=== PATIENT | female | born 1940 | race Caucasian/White ===

== ENCOUNTER 2020-11-24 20:50 | Inpatient (IN) ==
[2020-11-24 21:55] LABS: Basophils # 0.1 K/mcL (0.0-0.2); Basophils % 0.8 %; Eosinophils # 0.1 K/mcL (0.0-0.6); Eosinophils % 2.3 %; Hematocrit 34.8 % (35.3-44.9); Hemoglobin 10.9 g/dL (11.5-15.4); Immature Granulocytes % 0.3 % (0-4); Lymphocytes # 1.5 K/mcL (0.6-4.6); Lymphocytes % 23.6 %; Mean Corpuscular HGB Conc 31.3 g/dL (31.6-35.5); Mean Corpuscular Hemoglobin 29.7 pg (28.0-33.3); Mean Corpuscular Volume 94.8 fL (83.0-100.0); Mean Platelet Volume 8.8 fL (9.4-12.4); Monocytes # 0.5 K/mcL (0.0-1.3); Monocytes % 8.3 %; Platelet Count 241 K/mcL (140-400); Red Blood Count 3.67 M/mcL (3.82-4.97); Red Cell Distribution Width 12.9 % (11.5-14.5); Segmented Neutrophils % 64.7 %; White Blood Count 6.2 K/mcL (4.3-11.1)
[2020-11-24 22:18] LABS: Alanine Aminotransferase 19 Units/L (7-52); Albumin 3.5 g/dL (3.5-5.7); Albumin/Globulin Ratio 1.2 (1.1-2.2); Alkaline Phosphatase 73 Units/L (34-104); Aspartate Amino Transferase 32 Units/L (13-39); BUN/Creatinine Ratio 13 (6-26); Bilirubin,Direct 0.1 mg/dL (0.0-0.2); Bilirubin,Indirect 0.2 mg/dL (0.0-1.0); Bilirubin,Total 0.3 mg/dL (0.3-1.0); Blood Urea Nitrogen 17 mg/dL (8-23); Carbon Dioxide 30 mEq/L (23-29); Chloride 98 mEq/L (98-107); Glucose 109 mg/dL (70-105); Magnesium 1.8 mg/dL (1.6-2.6); Osmolality,Calculated 286 (280-300); Sodium 137 mEq/L (136-145); Total Protein 6.5 g/dL (6.4-8.9); eGFR For African Americans 48 (> 60); eGFR For Non-African Americans 40 (> 60)
[2020-11-24 22:19] LABS: Troponin I < 0.03 ng/mL (< 0.04)
[2020-11-24] MEDS ORDERED: Ketorolac 15 MG/ML VIAL IVP ONE (22:48)
[2020-11-24 23:49] LABS: Bilirubin,Urine Negative (Negative); Blood,Urine Negative (Negative); Clarity,Urine Clear (Clear); Color,Urine Yellow (Yellow); Glucose,Urine (UA) Normal (Normal); Hyaline Casts,Urine Few per lpf (None Seen); Ketones,Urine Negative (Negative); Leukocyte Esterase,Urine Moderate (Negative); Mucus,Urine Few per lpf (None-Few); Nitrite,Urine Negative (Negative); PH,Urine 6.5 pH Units (5.0-8.0); Protein,Urine Trace mg/dL (Neg-Trace); RBC,Urine 0-3 per hpf (0-3); Specific Gravity,Urine 1.021 (1.010-1.025); Squamous Epithelial Cell,Urine Few per hpf (None-Few); Transitional Epi Cells,Urine Few per hpf (None-Few); Urobilinogen,Urine Normal (Normal)
[2020-11-24] MEDS ORDERED: cefTRIAXone 1,000 MG in Water for inj. (sterile) 10 ML IVP ONE (23:55)
[2020-11-25] MEDS ORDERED: Melatonin 3 MG TABLET PO PRN (01:53)
[2020-11-25] MEDS ORDERED: Naloxone 0.4 MG/ML INJ IVP PRN (01:53)
[2020-11-25] MEDS ORDERED: 0.9 % Sodium Chloride 1,000 ML IVC ONE (05:04)
[2020-11-25 06:11] LABS: Basophils % 0.6 %; Eosinophils # 0.3 K/mcL (0.0-0.6); Eosinophils % 4.3 %; Hematocrit 32.7 % (35.3-44.9); Hemoglobin 10.9 g/dL (11.5-15.4); Immature Granulocytes % 0.3 % (0-4); Lymphocytes # 2.4 K/mcL (0.6-4.6); Lymphocytes % 35.7 %; Mean Corpuscular HGB Conc 33.3 g/dL (31.6-35.5); Mean Corpuscular Volume 92.9 fL (83.0-100.0); Mean Platelet Volume 9.2 fL (9.4-12.4); Monocytes # 0.6 K/mcL (0.0-1.3); Neutrophils # 3.4 K/mcL (1.6-8.9); Platelet Count 230 K/mcL (140-400); Red Blood Count 3.52 M/mcL (3.82-4.97); Segmented Neutrophils % 50.1 %; White Blood Count 6.7 K/mcL (4.3-11.1)
[2020-11-25] MEDS: *HR* Heparin 5,000 UNIT/ML VIAL SQ SCH ×2 (06:24→16:49)
[2020-11-25 06:40] LABS: Alanine Aminotransferase 16 Units/L (7-52); Albumin 3.4 g/dL (3.5-5.7); Albumin/Globulin Ratio 1.3 (1.1-2.2); Alkaline Phosphatase 70 Units/L (34-104); Aspartate Amino Transferase 30 Units/L (13-39); BUN/Creatinine Ratio 16 (6-26); Bilirubin,Total 0.2 mg/dL (0.3-1.0); Blood Urea Nitrogen 22 mg/dL (8-23); Calcium 8.8 mg/dL (8.6-10.3); Carbon Dioxide 28 mEq/L (23-29); Chloride 99 mEq/L (98-107); Globulin 2.6 g/dL (2.4-3.5); Glucose 96 mg/dL (70-105); Magnesium 1.8 mg/dL (1.6-2.6); Osmolality,Calculated 285 (280-300); Phosphorous 3.4 mg/dL (2.7-4.5); Sodium 136 mEq/L (136-145); Troponin I < 0.03 ng/mL (< 0.04); eGFR For African Americans 44 (> 60); eGFR For Non-African Americans 36 (> 60)
[2020-11-25] MEDS ORDERED: Perflutren Lipid Microsphere 1.3 ML in 0.9 % Sodium Chloride 8.7 ML IVP PRN (10:02)
[2020-11-25 10:35] LABS: Thyroid Stimulating Hormone 6.341 mcIU/mL (0.340-5.600)
[2020-11-25] MEDS: Acetaminophen 325 MG TABLET PO PRN (12:55)
[2020-11-25] MEDS ORDERED: atenoloL 50 MG TABLET PO SCH (13:30)
[2020-11-25] MEDS: Ondansetron 4 MG/2 ML VIAL IVP PRN (19:22)
[2020-11-25] MEDS: Lactobacillus 1 EACH CAP.SPRINK PO SCH (21:21)
[2020-11-26] MEDS ORDERED: *HR* Metoprolol 5 MG/5 ML VIAL IVP ONE ×2 (00:41→14:17)
[2020-11-26 05:11] LABS: Hematocrit 34.7 % (35.3-44.9); Hemoglobin 11.9 g/dL (11.5-15.4); Mean Corpuscular HGB Conc 34.3 g/dL (31.6-35.5); Mean Corpuscular Hemoglobin 31.2 pg (28.0-33.3); Mean Corpuscular Volume 91.1 fL (83.0-100.0); Mean Platelet Volume 9.1 fL (9.4-12.4); Platelet Count 263 K/mcL (140-400); Red Blood Count 3.81 M/mcL (3.82-4.97); Red Cell Distribution Width 12.7 % (11.5-14.5); White Blood Count 8.2 K/mcL (4.3-11.1)
[2020-11-26 05:34] LABS: Calcium 8.9 mg/dL (8.6-10.3); Magnesium 1.8 mg/dL (1.6-2.6); Phosphorous 3.6 mg/dL (2.7-4.5); Potassium 3.9 mEq/L (3.5-5.1)
[2020-11-26 05:58] LABS: Folate > 22.3 ng/mL (3.0-16.0); Vitamin B12 735 pg/mL (250-1100)
[2020-11-26] MEDS ORDERED: carvediloL 6.25 MG TABLET PO SCH (08:00)
[2020-11-26] MEDS: *HR* Heparin 5,000 UNIT/ML VIAL SQ SCH ×2 (08:16→17:32)
[2020-11-26] MEDS ORDERED: Iron Sucrose Complex 400 MG in 0.9 % Sodium Chloride 250 ML IVPB ONE (08:22)
[2020-11-26] MEDS: NIFEdipine XL (24 HR) 60 MG TAB.ER.24 PO SCH (09:58)
[2020-11-26] MEDS: Lactobacillus 1 EACH CAP.SPRINK PO SCH ×2 (09:58→20:55)
[2020-11-26] MEDS: cefTRIAXone 1,000 MG in Water for inj. (sterile) 10 ML IVP SCH (09:59)
[2020-11-26 10:13] LABS: Adenovirus F 40/41 PCR Not detected (Not detect); Astrovirus PCR Not detected (Not detect); C.difficile Toxin A/B Gene PCR Not detected (Not detect); Campylobacter by PCR Not detected (Not detect); Cryptosporidium by PCR Not detected (Not detect); Cyclospora cayetanensis PCR Not detected (Not detect); E. coli O157 by PCR Not detected (Not detect); Entamoeba histolytica PCR Not detected (Not detect); Enteroaggregative E.coli(EAEC) Not detected (Not detect); Enteropathogenic E.coli(EPEC) Not detected (Not detect); Enterotoxigenic E.coli (ETEC) Not detected (Not detect); Giardia lamblia PCR Not detected (Not detect); Norovirus GI/GII PCR Not detected (Not detect); Plesiomonas shigelloides PCR Not detected (Not detect); Rotavirus A PCR Not detected (Not detect); Salmonella PCR Not detected (Not detect); Sapovirus PCR Not detected (Not detect); Shig/EnteroinvasiveE coli EIEC Not detected (Not detect); Shigalike tox-prod E coli STEC Not detected (Not detect); Vibrio PCR Not detected (Not detect); Vibrio cholerae PCR Not detected (Not detect); Yersinia enterocolitica PCR Not detected (Not detect)
[2020-11-26] MEDS ORDERED: *HR* HYDROcodone/Acet 5/325 mg TABLET PO PRN (13:10)
[2020-11-26] MEDS ORDERED: Fluticasone Propionate Nasal 50 MCG/SPRAY BOTTLE NS PRN (13:10)
[2020-11-26] MEDS: Ondansetron 4 MG/2 ML VIAL IVP PRN (13:16)
[2020-11-26] MEDS: Acetaminophen 325 MG TABLET PO PRN ×2 (13:16→20:54)
[2020-11-26] MEDS: Gabapentin 400 MG CAPSULE PO SCH ×2 (14:52→20:55)
[2020-11-26] MEDS: Ketorolac OPTH Soln 5 ML BOTTLE BOTH EYES SCH (14:52)
[2020-11-26] MEDS: carvediloL 6.25 MG TABLET PO SCH (17:32)
[2020-11-26] MEDS: traZODone 50 MG TABLET PO SCH (20:55)
[2020-11-27 04:18] LABS: Hematocrit 38.6 % (35.3-44.9); Hemoglobin 12.9 g/dL (11.5-15.4); Mean Corpuscular HGB Conc 33.4 g/dL (31.6-35.5); Mean Corpuscular Hemoglobin 30.6 pg (28.0-33.3); Mean Corpuscular Volume 91.5 fL (83.0-100.0); Mean Platelet Volume 8.8 fL (9.4-12.4); Platelet Count 301 K/mcL (140-400); Red Blood Count 4.22 M/mcL (3.82-4.97); Red Cell Distribution Width 13.2 % (11.5-14.5); White Blood Count 10.3 K/mcL (4.3-11.1)
[2020-11-27 04:36] LABS: BUN/Creatinine Ratio 15 (6-26); Blood Urea Nitrogen 16 mg/dL (8-23); Calcium 9.3 mg/dL (8.6-10.3); Carbon Dioxide 26 mEq/L (23-29); Chloride 99 mEq/L (98-107); Glucose 81 mg/dL (70-105); Magnesium 2.2 mg/dL (1.6-2.6); Osmolality,Calculated 284 (280-300); Potassium 3.5 mEq/L (3.5-5.1); Sodium 137 mEq/L (136-145); eGFR For African Americans > 60 (> 60); eGFR For Non-African Americans 50 (> 60)
[2020-11-27] MEDS: *HR* Heparin 5,000 UNIT/ML VIAL SQ SCH ×2 (06:36→16:16)
[2020-11-27] MEDS ORDERED: *HR* Metoprolol 5 MG/5 ML VIAL IVP ONE ×6 (06:42→23:22)
[2020-11-27] MEDS: Ketorolac OPTH Soln 5 ML BOTTLE BOTH EYES SCH ×4 (07:39→21:32)
[2020-11-27] MEDS: Aspirin Enteric Coated 81 MG Tablet PO SCH (08:14)
[2020-11-27] MEDS: carvediloL 6.25 MG TABLET PO SCH (08:14)
[2020-11-27] MEDS: NIFEdipine XL (24 HR) 60 MG TAB.ER.24 PO SCH (08:14)
[2020-11-27] MEDS: Loratadine 10 MG TABLET PO SCH (08:14)
[2020-11-27] MEDS: Gabapentin 400 MG CAPSULE PO SCH ×3 (08:14→21:34)
[2020-11-27] MEDS: Lactobacillus 1 EACH CAP.SPRINK PO SCH ×2 (08:14→21:34)
[2020-11-27] MEDS: cefTRIAXone 1,000 MG in Water for inj. (sterile) 10 ML IVP SCH (08:14)
[2020-11-27] MEDS: traZODone 50 MG TABLET PO SCH (21:33)
[2020-11-28] MEDS ORDERED: *HR* Metoprolol 5 MG/5 ML VIAL IVP ONE ×2 (02:40→08:42)
[2020-11-28 05:51] LABS: Hematocrit 37.5 % (35.3-44.9); Hemoglobin 12.7 g/dL (11.5-15.4); Mean Corpuscular HGB Conc 33.9 g/dL (31.6-35.5); Mean Corpuscular Hemoglobin 30.3 pg (28.0-33.3); Mean Corpuscular Volume 89.5 fL (83.0-100.0); Mean Platelet Volume 8.9 fL (9.4-12.4); Platelet Count 314 K/mcL (140-400); Red Blood Count 4.19 M/mcL (3.82-4.97); Red Cell Distribution Width 12.9 % (11.5-14.5); White Blood Count 8.4 K/mcL (4.3-11.1)
[2020-11-28 06:20] LABS: BUN/Creatinine Ratio 15 (6-26); Blood Urea Nitrogen 14 mg/dL (8-23); Carbon Dioxide 25 mEq/L (23-29); Chloride 101 mEq/L (98-107); Glucose 95 mg/dL (70-105); Magnesium 1.9 mg/dL (1.6-2.6); Osmolality,Calculated 286 (280-300); Phosphorous 2.6 mg/dL (2.7-4.5); Potassium 3.3 mEq/L (3.5-5.1); Sodium 138 mEq/L (136-145); eGFR For African Americans > 60 (> 60); eGFR For Non-African Americans 56 (> 60)
[2020-11-28] MEDS: *HR* Heparin 5,000 UNIT/ML VIAL SQ SCH ×2 (06:43→17:12)
[2020-11-28] MEDS: Aspirin Enteric Coated 81 MG Tablet PO SCH (08:32)
[2020-11-28] MEDS: Lactobacillus 1 EACH CAP.SPRINK PO SCH ×2 (08:32→21:40)
[2020-11-28] MEDS: Loratadine 10 MG TABLET PO SCH (08:33)
[2020-11-28] MEDS: Ketorolac OPTH Soln 5 ML BOTTLE BOTH EYES SCH ×3 (08:33→21:42)
[2020-11-28] MEDS: Gabapentin 400 MG CAPSULE PO SCH ×3 (08:33→21:39)
[2020-11-28] MEDS ORDERED: *HR* Digoxin 0.5 MG/2 ML AMPUL IVP ONE (08:53)
[2020-11-28] MEDS: *HR* HYDROcodone/Acet 5/325 mg TABLET PO PRN ×2 (10:16→22:26)
[2020-11-28] MEDS ORDERED: *HR* Digoxin 0.5 MG/2 ML AMPUL IVP SCH ×2 (15:00→21:30)
[2020-11-28] MEDS: traZODone 50 MG TABLET PO SCH (21:40)
[2020-11-29] MEDS: *HR* Heparin 5,000 UNIT/ML VIAL SQ SCH ×2 (06:20→18:09)
[2020-11-29 07:42] LABS: Potassium 4.2 mEq/L (3.5-5.1)
[2020-11-29 07:43] LABS: Basophils # 0.1 K/mcL (0.0-0.2); Basophils % 0.6 %; Eosinophils # 0.3 K/mcL (0.0-0.6); Eosinophils % 2.4 %; Hematocrit 41.8 % (35.3-44.9); Hemoglobin 13.5 g/dL (11.5-15.4); Immature Granulocytes % 0.5 % (0-4); Lymphocytes # 2.2 K/mcL (0.6-4.6); Mean Corpuscular HGB Conc 32.3 g/dL (31.6-35.5); Mean Corpuscular Hemoglobin 29.6 pg (28.0-33.3); Mean Corpuscular Volume 91.7 fL (83.0-100.0); Mean Platelet Volume 9.2 fL (9.4-12.4); Monocytes # 0.8 K/mcL (0.0-1.3); Monocytes % 7.6 %; Neutrophils # 7.4 K/mcL (1.6-8.9); Platelet Count 295 K/mcL (140-400); Red Blood Count 4.56 M/mcL (3.82-4.97); Segmented Neutrophils % 68.9 %; White Blood Count 10.7 K/mcL (4.3-11.1)
[2020-11-29] MEDS: Loratadine 10 MG TABLET PO SCH (08:33)
[2020-11-29] MEDS: Aspirin Enteric Coated 81 MG Tablet PO SCH (08:33)
[2020-11-29] MEDS: Lactobacillus 1 EACH CAP.SPRINK PO SCH ×2 (08:33→21:15)
[2020-11-29] MEDS: Gabapentin 400 MG CAPSULE PO SCH ×3 (08:33→21:16)
[2020-11-29] MEDS: Ketorolac OPTH Soln 5 ML BOTTLE BOTH EYES SCH ×3 (08:33→21:21)
[2020-11-29] MEDS: *HR* HYDROcodone/Acet 5/325 mg TABLET PO PRN ×2 (09:39→18:14)
[2020-11-29] MEDS: traZODone 50 MG TABLET PO SCH (21:16)
[2020-11-30] MEDS ORDERED: *HR* Metoprolol 5 MG/5 ML VIAL IVP ONE (02:36)
[2020-11-30 02:45] VITALS: O2SAT 93
[2020-11-30] MEDS: *HR* HYDROcodone/Acet 5/325 mg TABLET PO PRN ×2 (03:02→10:04)
[2020-11-30] MEDS: *HR* Heparin 5,000 UNIT/ML VIAL SQ SCH (05:24)
[2020-11-30] MEDS: Lactobacillus 1 EACH CAP.SPRINK PO SCH (08:15)
[2020-11-30] MEDS: Gabapentin 400 MG CAPSULE PO SCH (08:15)
[2020-11-30] MEDS: Ketorolac OPTH Soln 5 ML BOTTLE BOTH EYES SCH (08:15)
[2020-11-30] MEDS: Loratadine 10 MG TABLET PO SCH (08:15)
[2020-11-30] MEDS: Aspirin Enteric Coated 81 MG Tablet PO SCH (08:15)
[2020-11-30 08:21] VITALS: BP 164/91; PULSE 91; TEMP 97.4
[2020-11-30] MEDS ORDERED: *HR* Digoxin 0.125 MG TABLET PO SCH (09:00)
== END 2020-11-30 15:25 | disposition home or self-care (01) | DRG 690 ==
LOC: EMEROOARM 20:50 → 3ANU 20:50 → SUATTDRO 11-25 00:39 → 3ANU 11-25 01:25 → SUATTDRO 11-26 14:45
PROVIDERS: ADMIT Internal Medicine; ATTEND Family Medicine